=== PATIENT | female | born 1985 | race Caucasian/White ===

== ENCOUNTER 2017-01-07 18:49 | Emergency (ER) | payer OTHER ==
[~2017-01-07] VITALS: Ht 147.3 cm; Wt 52.6 kg
[2017-01-07 20:36] LABS: BASOPHIL % 0.6 % (0-2); PLATELET COUNT 329 x10^3mcL (130-400); RED CELL DISTRIBUTION WIDTH 13.2 % (11.5-14.5)
[2017-01-07 20:40] LABS: CALCIUM 9.5 mg/dL (8.5-10.1); CARBON DIOXIDE 28.1 mmol/L (21-32); CHLORIDE SERUM 102 mmol/L (98-107); CREATININE SERUM 0.7 mg/dL (0.6-1.0); GFR1 > 60 mL/min; GLUCOSE SERUM 86 mg/dL (74-106); POTASSIUM SERUM 3.6 mmol/L (3.5-5.1); SODIUM SERUM 140 mmol/L (136-145)
[2017-01-07 20:46] LABS: ALBUMIN 4.2 g/dL (3.4-5.0); ALKALINE PHOSPHATASE 79 U/L (46-116); ALT/SGPT 20 U/L (14-59); AST/SGOT 14 U/L (15-37); BILIRUBIN TOTAL 0.4 mg/dL (0.20-1.00); T4(THYROXINE) 9.1 ug/dL (4.7-13.3)
[2017-01-07 20:47] LABS: TOTAL PROTEIN, SERUM 8.5 g/dL (6.4-8.2)
[2017-01-07 21:07] LABS: AMPHETAMINE QUAL UR NONE DETECTED (NEG <=1000)
[2017-01-07 21:37] VITALS: BP 122/82
== END 2017-01-07 21:37 | disposition home or self-care (01) ==
LOC: ED 18:49
PROVIDERS: Emergency Medicine
DX: R42 Dizziness and giddiness (principal); N91.2 Amenorrhea, unspecified
CPT/HCPCS: 80307; Q0162